=== PATIENT | male | born 1960 | race Asian ===

== ENCOUNTER 2018-07-02 10:40 | Day surgery (SDC) | payer MEDICAID ==
[~2018-07-02] VITALS: Ht 165.1 cm; Wt 96.4 kg
[~2018-07-02 10:40] MED LIST: AMLO-512 PO; FERG325 PO; INSU300I SQ; LOSA50TA64 PO; METF-960 PO; OMEP20 PO; PHEN28OI6 TP; SIMV-261 PO; SUCR1TAB PO
[2018-07-02] MEDS ORDERED: LIDOCAINE/PF 2% 5 ML VIAL IM ONE (10:41)
[2018-07-02] MEDS ORDERED: PROPOFOL 1% 20 ML VIAL IVP ONE (10:41)
[2018-07-02] MEDS ORDERED: SODIUM CHLORIDE 0.9% 1,000 ML IV ONE ×2 (10:45→11:30)
[2018-07-02 11:44] LABS: GLUCOMETER DEV NAME(LOC) SDS.; GLUCOSE,POINT OF CARE 104 MG/DL (70-110)
[2018-07-02] MEDS ORDERED: MIDAZOLAM HCL 5 MG/ML VIAL ONE (11:49)
[2018-07-02] MEDS ORDERED: FentaNYL CITRATE-PF 100 MCG/2 ML VIAL ONE (11:49)
== END 2018-07-02 14:15 | disposition home or self-care (01) ==
LOC: SURGERY 10:40
PROVIDERS: ATTEND Student in an Organized Health Care Education/Training Program
DX: K64.8 Other hemorrhoids (principal); K57.30 Diverticulosis of large intestine without perforation or abscess without bleeding; K74.60 Unspecified cirrhosis of liver; D64.9 Anemia, unspecified; I10 Essential (primary) hypertension; E78.5 Hyperlipidemia, unspecified; E11.9 Type 2 diabetes mellitus without complications; Z79.899 Other long term (current) drug therapy
CPT/HCPCS: 45378; 82962; J2704; J3490; J7030; J2250; J3010

== ENCOUNTER 2018-07-25 05:48 | Day surgery (SDC) | payer MEDICAID ==
[~2018-07-25] VITALS: Ht 165.1 cm; Wt 99.5 kg
[2018-07-25] MEDS ORDERED: ALBUTEROL SULFATE 2.5 MG/0.5 ML NEB SOLUTION NEB ONE (05:49)
[2018-07-25] MEDS ORDERED: LIDOCAINE 4% 50 ML SOLUTION TP ONE (05:49)
[2018-07-25] MEDS ORDERED: LIDOCAINE 2% 11 ML JELLY TP ONE (05:49)
[2018-07-25] MEDS ORDERED: BENZOCAINE 20% 50 MCG/SPRAY 57 GM TP ONE (05:49)
[2018-07-25] MEDS ORDERED: SODIUM CHLORIDE 0.9% 1,000 ML IV ONE ×2 (05:54→06:30)
[2018-07-25] MEDS ORDERED: FentaNYL CITRATE-PF 100 MCG/2 ML VIAL ONE (07:38)
[2018-07-25] MEDS ORDERED: MIDAZOLAM HCL 2 MG/2 ML VIAL ONE (07:38)
[2018-07-25] MEDS ORDERED: MethylPREDNISolone SOD SUCC 125 MG/2 ML VIAL IVP ONE ×2 (08:45)
[2018-07-25] MEDS ORDERED: MethylPREDNISolone SOD SUCC 125 MG/2 ML VIAL ONE (08:48)
[2018-07-25] MEDS ORDERED: OXYGEN THERAPY IH SCH ×2 (20:00)
== END 2018-07-25 10:05 | disposition home or self-care (01) ==
LOC: SURGERY 05:48
PROVIDERS: ATTEND Internal Medicine Critical Care Medicine
DX: J38.4 Edema of larynx (principal); B37.0 Candidal stomatitis; E78.00 Pure hypercholesterolemia, unspecified; Z79.899 Other long term (current) drug therapy; Z87.891 Personal history of nicotine dependence; Z98.890 Other specified postprocedural states
CPT/HCPCS: 31623; 31624; 71045; 87015; 87070; 87101; 87205; 87206; 87220; 88108; 88312; J2250; J2930; J3010; J7030